=== PATIENT | male | born 2000 | race African-American/Black ===

== ENCOUNTER 2020-02-07 17:12 | Emergency (ER) | payer SELFPAY ==
--- NOTE | ~2020-02-07 | CT_ITS ---
EXAMINATION: CT abdomen pelvis w con DATE: 02/07/2020 20:11 INDICATION: Upper abdominal pain and leukocytosis TECHNIQUE: Computed tomography (CT) of the abdomen and pelvis was performed with 100 mL Omnipaque-350 intravenous contrast. Automated exposure control and iterative reconstruction technique were employe d. The dose-length product was 332.95 mGy-cm. COMPARISON: None FINDINGS: Lung bases are clear. Heart size is normal. No pericardial or pleural effusion. Liver, gallbladder, s pleen, pancreas, bilateral adrenal glands and kidneys are normal. Bowels including the appendix are n ormal. Bladder is normal. Minimal ascites in the deep pelvis. No abscess or free intraperitoneal gas. No pathologically enlarged abdominal or pelvic lymphadenopathy. Bones are unremarkable. IMPRESSION: 1. Minimal ascites in the pelvis which is abnormal but of indeterminate etiology. No other evident ac cesar intra-abdominal/pelvic process. Reviewed, dictated and finalized at location . SEAM MACHINE OPERATOR IMPRESSION: 1. Minimal ascites in the pelvis which is abnormal but of indeterminate etiolog y. No other evident acute intra-abdominal/pelvic process.
--- NOTE | ~2020-02-07 | XR_ITS ---
EXAMINATION: XR chest 1V portable DATE: 02/07/2020 18:11 INDICATION: Cough, fever and chest tightness TECHNIQUE: frontal view of the chest was obtained. COMPARISON: None FINDINGS: The lungs are clear with no focal airspace opacities, pulmonary edema, pleural effusion or pneumothor ax. The cardiomediastinal silhouette is normal. Visualized bones and soft tissues are unremarkable. IMPRESSION: 1. Normal chest radiograph. Reviewed, dictated and finalized at location [facility]. HOSTLER IMPRESSION: 1. Normal chest radiograph.
[2020-02-07 17:46] VITALS: BP 129/77; PULSE 88; RESP 18; TEMP 37.3; O2SAT 93
--- NOTE | 2020-02-07 17:47 | ECG_ITS ---
Measurements Intervals [place] Rate: 80 P: 43 NV: 163 QRS: 77 QRSD: 88 T: 58 QT: 357 QTc: 412 Interpretive Statements SINUS RHYTHM MINIMAL Q WAVES- ANTEROLAT/INF LEADS BORDERLINE ECG Electronically Signed On 02-08-2020 8:44:19 GLUE SPRAYER by Bobby Gaytan D.O.
--- NOTE | 2020-02-07 17:47 | ED.FEVER ---
HPI - Fever General Chief Complaint: Fever Stated Complaint: fever Time Seen by Provider: 02/07/20 17:26 Source: patient Mode of arrival: ambulatory Limitations: no limitations History of Present Illness HPI Narrative: This patient is a 19 year old male who presents for evaluation of viral symptoms. HE states he has had cough, nausea, vomiting and diarrhea for 2 day. He has a cough that is productive with phlegm. He also has midsternal chest pain with coughing, but he denies shortness of breath. He reports nausea, vomiting and diarrhea for 2 days. He was evaluated at [facility] yesterday for these symptoms. He was told he likely has covid and he was discharged with an albuterol inhaler. He reports he has a chest xray. He has come to [place] because he states they evaluated him too quickly. Related Data Allergies Allergy/AdvReac Type Severity Reaction Status Date / Time No Known Allergies Allergy Verified 02/07/20 19:16 Review of Systems Review of Systems: All systems reviewed & are unremarkable except as noted in HPI and below Constitutional: Constitutional: Reports chills and Reports fever(s) (last night) ENT: Reports nasal congestion Cardiovascular: Cardiovascular: Reports chest pain, Denies rapid heart rate and Denies radiating jaw, neck or arm pain Respiratory: Respiratory: Reports cough, Denies dyspnea and Denies wheezing Gastrointestinal: Gastrointestinal: Reports abdominal pain, Reports diarrhea, Reports nausea and Reports vomiting PMFSH Past Medical History Medical History (Updated 02/08/20 @ 00:00 by Background Daemon) Patient denies medical problems Surgical History Surgical History (Updated 02/07/20 @ 17:52 by Leela Hernandez MD) No significant past surgical history Social History Social History (Updated 02/07/20 @ 17:52 by Leela Hernandez MD) Smoking status: Current every day smoker Tobacco type: cigars Gender identity (if verbalized by the patient): Male Exam Const: General: no acute distress and alert Orientation/consciousness: patient oriented x3 HENMT: Head: normocephalic and atraumatic Ears: TM's normal bilaterally Face and sinus: face symmetric Mouth: Yes Normal oral and palatal mucosa present, Yes lip normal, Yes oropharynx normal and Yes moist mucous membranes Eyes: Pupils: Equal, round and reactive pupils present EOM: EOMs intact bilaterally Chest: Chest palpation & inspection: tenderness (sternal tenderness) Resp: Effort & Inspection: normal respiratory effort and no retractions Auscultation: clear to auscultation bilaterally Cardio: Rate: regular rate Rhythm: regular rhythm Heart sounds: no murmurs GI: GI Palp: Yes Soft to palpation, No Tenderness to palpation present (GI), No Guarding due to palpation present (GI) and No Rigid due to palpation Auscultation: normal bowel sounds Skin: General skin exam: normal color Rashes: no rashes Neuro: General: patient oriented x3 and moves all extremities Psych: Mental Status: mental status grossly normal Course Reevaluation(s) Reevaluation #1: PAtient is has no complaints. He is able to tolerate PO with pradeep crackers and horvath. He does have leukocytosis but no acute findings. He has a prescription for albuterol and z pack which has not started taking . He is pending covid test from [facility]. Date: 02/07/20 Time: 21:26 Vital Signs Vital signs: Vital Signs Temperature 99.2 F 02/07/20 17:46 Pulse Rate 88 02/07/20 17:46 Respiratory Rate 18 02/07/20 17:46 Blood Pressure 129/77 02/07/20 17:46 Pulse Oximetry 93 02/07/20 17:46 Temperature 99.2 F 02/07/20 17:46 Pulse Rate 98 02/07/20 21:03 Respiratory Rate 16 02/07/20 21:03 Blood Pressure 113/71 02/07/20 21:03 Pulse Oximetry 95 02/07/20 21:03 MDM - Fever Lab Data Attestation: I reviewed the patient's lab results. Result diagrams: 02/07/20 17:50 02/07/20 17:50 Labs: Lab R
[2020-02-07 17:59] LABS: Hematocrit 46.7 % (42.0-52.0); Hemoglobin 15.4 g/dL (14.0-18.0); Mean Corpuscular Hemoglobin 27.5 pg (26-34); Mean Corpuscular Volume 83.4 fl (80-100); Mean Platelet Volume 9.9 fl (7.4-10.4); Platelet Count Result 226 k/mm3 (150-375); Red Cell Distribution Width 12.9 % (11.5-14.5); White Blood Count 17.8 K/mm3 (4.5-10.0)
[2020-02-07 18:07] LABS: Add Urine Microscopic? YES; Appearance Urine Clear (Clear); Bacteria Urine Trace /hpf; Bilirubin Urine Negative (Negative); Blood Urine 1+ (Negative); Color Urine Yellow (Yellow); Glucose Urine UA Negative (Negative); Ketones Urine 1+ mg/dL (Negative); Leukocyte Esterase Ur Trace LEU/UL (Negative); Mucus Urine Rare /lpf; Nitrate Urine Negative (Negative); Protein Urine 1+ mg/dL (Negative); Squamous Epithelial Cell Urine Occasional /hpf (Few); WBC Urine 0-3 /hpf
[2020-02-07 18:10] LABS: Alanine Aminotransferase 24 U/L (4-50); Albumin Level 5.2 g/dL (3.5-5.1); Alkaline Phosphatase 56 U/L (38-126); Anion Gap 11 mmol/L (8-16); Aspartate Amino Transferase 45 U/L (17-59); Blood Urea Nitrogen 13 mg/dL (9-20); Calcium 9.8 mg/dL (8.4-10.2); Carbon Dioxide 28 mmol/L (22-30); Chloride 101 mmol/L (98-107); Estimated CRCL calculation 117 ml/min; Estimated Glomerular Filt Rate > 60; Glucose 120 mg/dL (75-110); Lipase 30 U/L (23-300); Potassium 3.7 mmol/L (3.4-5.0); Sodium 140 mmol/L (137-145)
[2020-02-07 18:18] LABS: Band Neutrophils Percent 13 % (0-6); Lymphocytes Absolute Manual 0.71 K/mm3 (1.1-4.5); Monocytes Absolute Manual 0.71 K/mm3 (0.1-0.90); Monocytes Percent Manual 4 % (3-9); Neutrophils Absolute Manual 16.37 K/mm3 (1.3-6.7); Neutrophils Percent Manual 79 % (46-73); Total Cells Counted 100
[2020-02-07 18:19] LABS: Platelet Estimate Adequate (Adequate)
--- NOTE | 2020-02-07 18:28 | PC.NURSE ---
Called lab to add on C-Reactive Prot
--- NOTE | 2020-02-07 18:37 | PC.NURSE ---
I did not do the EKG but documented its completion.
[2020-02-07 18:43] LABS: CRP 4.1 mg/dL (<1.0)
[2020-02-07] MEDS: SODIUM CHLORIDE 0.9% IV 1,000 ML 999 ML IV CONT ×2 (19:00→19:51)
[2020-02-07] MEDS: ONDANSETRON INJ 4 MG/2 ML VIAL IV PUSH (19:00)
[2020-02-07 19:16] VITALS: BP 121/56; PULSE 80; O2SAT 92
[2020-02-07 19:19] VITALS: BP 80/67; PULSE 84; O2SAT 91
[2020-02-07 19:23] VITALS: BP 118/80; PULSE 100
[2020-02-07 19:24] VITALS: BP 118/80; BP 121/56; BP 80/67; PULSE 101; PULSE 71; PULSE 83
[2020-02-07] MEDS: Please add drug allergy info to patient profile. 1 EACH XX (19:51)
[2020-02-07 21:03] VITALS: BP 113/71; PULSE 98; RESP 16; O2SAT 95
== END 2020-02-07 21:45 | disposition home or self-care (01) ==
PROVIDERS: Emergency Provider General Practice
DX: B34.9 Viral infection, unspecified (principal); F17.290 Nicotine dependence, other tobacco product, uncomplicated; R94.31 Abnormal electrocardiogram [ECG] [EKG]; R18.8 Other ascites
CPT/HCPCS: 36415; 71045; 74177; 80053; 81001; 83690; 85025; 86140; 87804; 93005; 96361; 96374; 99284; J2405; J7030; Q9967

== ENCOUNTER 2021-10-10 19:45 | Emergency (ER) | payer SELFPAY ==
[2021-10-10 20:07] VITALS: BP 104/57; PULSE 77; RESP 18; TEMP 37.1; O2SAT 100
--- NOTE | 2021-10-10 21:25 | ED.GENADULT ---
HPI - General Adult General Chief complaint: Unspecified Stated complaint: sore throat Time Seen by Provider: 10/10/21 21:12 History of Present Illness HPI narrative: 20-year-old male presents the emergency room for evaluation of a sore throat. Endorses pain for last 3 days accompanied with body aches. Denies shortness of breath difficulty breathing, sinus congestion or postnasal drip or cough. Denies any known sick contacts. Denies fever. Related Data Allergies Allergy/AdvReac Type Severity Reaction Status Date / Time No Known Allergies Allergy Verified 02/07/20 19:16 Review of Systems Review of Systems: CONSTITUTIONAL: Denies fever, chills, or sweats. EYES: Denies visual changes, redness, or discharge. ENT: Reports sore throat CARDIOVASCULAR: Denies chest pain, palpitations, or edema. RESPIRATORY: Denies cough or dyspnea. GASTROINTESTINAL: Denies abdominal pain, nausea, vomiting, or diarrhea. GENITOURINARY: Denies dysuria or hematuria. SKIN: Denies rash or itching. MUSCULOSKELETAL: Denies back pain, joint pain, or myalgia. NEUROLOGIC: Denies headache, numbness, dizziness, or weakness. PSYCHIATRIC: Denies anxiety or depression. [facility] Past Medical History Medical History Patient denies medical problems Surgical History Surgical History No significant past surgical history Social History Social History Smoking status: Current every day smoker Tobacco type: cigars Gender identity (if verbalized by the patient): Male Exam Narrative: GENERAL: Well-appearing, well-nourished, no physical limitations, and in no acute distress. HEAD: Normocephalic, atraumatic. EYES: Conjunctivae normal, PERRLA and EOMI. ENT: External nose normal, Nares clear, no rhinorrhea or epistaxis. Mucous membranes moist. Oropharynx without tonsillar hypertrophy exudate or other lesions. External ears normal, bilateral TMs normal bilaterally NECK: Supple. No adenopathy or masses. CHEST: Clear to auscultation. No respiratory distress. No wheezes rales or rhonchi. No tenderness. HEART: Regular rate and rhythm. No murmur heard. Normal peripheral pulses. EXTREMITIES: Normal range of motion. No edema. No clubbing or cyanosis SKIN: Warm, dry, no rash. No noted wounds NEURO: No focal deficits. Alert and oriented x3. MAEW. CN's II-XI intact bilaterally, normal gait PSYCH: Cooperative. Tearful. Course Vital Signs Vital signs: Vital Signs Temperature 37.1 C 10/10/21 20:07 Pulse Rate 77 10/10/21 20:07 Respiratory Rate 18 10/10/21 20:07 Blood Pressure 104/57 L 10/10/21 20:07 Pulse Oximetry 100 10/10/21 20:07 Oxygen Delivery Room Air 10/10/21 20:07 Temperature 37.1 C 10/10/21 20:07 Pulse Rate 77 10/10/21 20:07 Respiratory Rate 18 10/10/21 20:07 Blood Pressure 104/57 L 10/10/21 20:07 Pulse Oximetry 100 10/10/21 20:07 Oxygen Delivery Room Air 10/10/21 20:07 Medical Decision Making Vital Signs Vital Signs: Vital Signs Temperature 37.1 C 10/10/21 20:07 Pulse Rate 77 10/10/21 20:07 Respiratory Rate 18 10/10/21 20:07 Blood Pressure 104/57 L 10/10/21 20:07 Pulse Oximetry 100 10/10/21 20:07 Oxygen Delivery Room Air 10/10/21 20:07 Temperature 37.1 C 10/10/21 20:07 Pulse Rate 77 10/10/21 20:07 Respiratory Rate 18 10/10/21 20:07 Blood Pressure 104/57 L 10/10/21 20:07 Pulse Oximetry 100 10/10/21 20:07 Oxygen Delivery Room Air 10/10/21 20:07 Lab Data Labs: Lab Results 10/10/21 Range/Units 21:30 SARS-CoV-2 RNA (RT-PCR) Negative Strep Screen Presumptive Negative *(Reference Range: Negative)* Discharge Plan Discharge Clinical Impression: Acute sore throat Patient Disposition: Home, Self-Care Condition:
[2021-10-10 22:18] LABS: SARS-CoV-2 RNA PCR Negative
== END 2021-10-10 22:30 | disposition home or self-care (01) ==
PROVIDERS: Emergency Provider Nurse Practitioner Family
DX: J02.9 Acute pharyngitis, unspecified (principal); Z20.822 Contact with and (suspected) exposure to COVID-19; F17.290 Nicotine dependence, other tobacco product, uncomplicated
CPT/HCPCS: 87081; 87880; 96372; 99283; C9803; J1100; U0003; U0005